=== PATIENT | male | born 1980 | race Two or more races ===

== ENCOUNTER 2024-02-27 08:05 | Day surgery (SDC) | payer BC ==
[~2024-02-27] VITALS: Ht 182.9 cm; Wt 113.4 kg
[~2024-02-27 08:05] MED LIST: ATOR20TA PO; CHOL20004 PO; SUMA100T15 PO
[2024-02-27] MEDS ORDERED: SUCCINYLCHOLINE CHLORIDE 20 MG/ML 10ML VIAL IV ONE (08:06)
[2024-02-27] MEDS ORDERED: ceFAZolin 2 GM/D5W50ml 50 ML IV ONE (08:24)
[2024-02-27] MEDS ORDERED: LIDOCAINE 2% JELLY 11ml (GLYDO) ONE (09:53)
[2024-02-27] MEDS ORDERED: PROPOFOL 10 MG/ML 20 ML IV ONE (09:54)
[2024-02-27] MEDS ORDERED: MEPERIDINE HCL (50 MG/ML) 1 ML VIAL ONE (09:54)
[2024-02-27] MEDS ORDERED: MIDAZOLAM HCL 2MG/2ML 2ml VIAL (1mg/ml) ONE (09:54)
[2024-02-27] MEDS ORDERED: ONDANSETRON HCL 4 MG/2 ML VIAL ONE ×2 (09:54→11:51)
[2024-02-27] MEDS ORDERED: fentaNYL CITRATE 100 MCG/2 ML VL ONE ×2 (09:54→10:53)
[2024-02-27] MEDS ORDERED: SODIUM CHLORIDE LOCK 10 ML ONE (09:54)
[2024-02-27] MEDS ORDERED: ROCURONIUM 10MG/ML 10ML VIAL IV ONE (09:54)
[2024-02-27] MEDS ORDERED: KETAMINE 50mg/ML 1ml syringe ONE (09:54)
[2024-02-27] MEDS ORDERED: LIDOCAINE 1% INJ PF 5ML AMP ONE (09:54)
[2024-02-27] MEDS ORDERED: ONDANSETRON HCL 4 MG/2 ML VIAL IV ONE (11:15)
[2024-02-27] MEDS ORDERED: HYDROmorphone HCL 2 MG/ML VL/or syr IV PRN ×2 (11:15)
[2024-02-27] MEDS: ROPIVACAINE 0.5% (5MG/ML) 20ML AMPULE IJ ONE (11:28)
[2024-02-27 12:19] VITALS: RESP 16; TEMP 97.8; O2SAT 99
[2024-02-27 12:55] VITALS: BP 159/95; PULSE 92; RESP 15; O2SAT 98
== END 2024-02-27 13:05 | disposition home or self-care (01) ==
LOC: SUR 08:05
PROVIDERS: ATTEND Orthopaedic Surgery
DX: S46.212A Strain of muscle, fascia and tendon of other parts of biceps, left arm, initial encounter (principal); X58.XXXA Exposure to other specified factors, initial encounter; Y93.89 Activity, other specified; Y92.89 Other specified places as the place of occurrence of the external cause; Y99.8 Other external cause status; I10 Essential (primary) hypertension; G47.30 Sleep apnea, unspecified; F43.10 Post-traumatic stress disorder, unspecified; Z79.899 Other long term (current) drug therapy; Z98.52 Vasectomy status; Z98.890 Other specified postprocedural states
CPT/HCPCS: 24340; J0330; J0690; J2175; J2250; J2405; J2704; J2795; J3010